=== PATIENT | female | born 1995 | race Caucasian/White ===

== ENCOUNTER 2018-09-15 01:42 | Emergency (ER) | payer OTHER ==
[~2018-09-15] VITALS: Ht 157.5 cm; Wt 61.2 kg
[2018-09-15 02:09] VITALS: BP_SYST 105
[2018-09-15] MEDS ORDERED: LIDOCAINE 1% 10 MG/ML, 20 ML MDV INJ ONE (02:15)
[2018-09-15] MEDS ORDERED: SULFAMETHOXAZOLE/TRIMETHOPR DS 1 TABLET PO ONE (03:00)
[2018-09-15] MEDS ORDERED: IBUPROFEN 800 MG TABLET PO ONE (03:00)
[2018-09-15 03:12] VITALS: BP_SYST 105
== END 2018-09-15 03:12 | disposition home or self-care (01) ==
LOC: SED 01:42
DX: L02.512 Cutaneous abscess of left hand (principal)
CPT/HCPCS: 10060; 99283; J2001